=== PATIENT | male | born 1960 | race Caucasian/White ===

== ENCOUNTER 2018-06-24 19:55 | Emergency (ER) | payer BC ==
[2018-06-24] MEDS: ASPIRIN 325 MG TABLET PO ONE (20:00)
[2018-06-24] MEDS: CLOPIDOGREL BISULFATE 75 MG TABLET PO ONE ×2 (20:02)
[2018-06-24] MEDS: NITROGLYCERIN 0.4 MG TAB.SUBL SL ONE ×2 (20:05→21:42)
[2018-06-24] MEDS: HEPARIN SODIUM 5000 UNIT/1 ML IV ONE (20:16)
[2018-06-24] MEDS ORDERED: HEPARIN SODIUM,PORCINE/D5W 20,000 UNIT/500 ML BAG IV ONE (20:16)
[2018-06-24] MEDS: HEPARIN SODIUM,PORCINE/D5W 20,000 UNIT/500 ML BAG IV ONE (20:18)
[2018-06-24] MEDS: 0.9 % SODIUM CHLORIDE 1,000 ML IV ONE (20:20)
[2018-06-24 20:27] LABS: BASOPHILS % 0.5 (0.0-1.5); EOSINOPHILS % 5.2 % (0.0-6.8); MEAN CORPUSCULAR HEMOGLOBIN 30.1 pg (28.0-34.0); MEAN CORPUSCULAR VOLUME 86.5 fl (80.0-100.0); MONOCYTES % 4.7 % (0.0-11.0); NEUTROPHILS # 5.3 # k/uL (1.4-7.7)
[2018-06-24 20:30] LABS: eGFR (Non-African) > 60
--- NOTE | 2018-06-24 20:31 | ED Physician Documentation ---
Chest Pain - HISTORIAN Historian: patient - HPI Stated Complaint: chest pain Chief Complaint: Chest Pain Additional Information: Sitting in bed and began to feel hot, sweat profusely, and had precordial pain radiating into his left shoulder. Pain improved after 20 minutes with only a bit of pain in left shoulder. No HX heart problems, except takes 3 meds for HTN. His mother had heart problems beginning at age 60. Quit smoking cigarettes 10 days ago and using vapor. Social drinker, uses marijuana. No other modifying factors or associated signs. Last known Well Date: 06/24/18 Last Known Well Time: 19:45 - ROS CONST: none - PAST HX ME risk factors: hypertension DVT/PE Risk Factors: none TAD/AAA risk factors: none Neuro deficit: none Surgeries/Procedures: none - SOCIAL HX Smoking History: quit less than 1 year, cigarettes Alcohol Use: occasionally Drug Use: marijuana - FAMILY HX Family HX: other (above) - REVIEWED ASSESSMENTS Nursing Assessment Reviewed: Yes Vitals Reviewed: Yes Progress - Progress Progress: EKG: stemi. sinus bradycardia. ST elevations avl, avf, II; depressions avr, V1, V4 2011, accepted for admit to [facility] per Dr. Saunders. ED Results Lab/Radiology - Orders Orders: ED Orders Category Date Time Status Place IV Lock 1T Care 06/24/18 20:10 Active CBC/PLATELET/DIFF Routine Lab 06/24/18 20:18 Received CMP Routine Lab 06/24/18 20:18 Received TROPONIN I (cTnI) Stat Lab 06/24/18 20:18 Received URINALYSIS Routine Lab 06/24/18 Ordered 0.9 % Sodium Chloride [Normal Saline] 1,000 ml Med 06/24/18 20:21 Discontinued IV .STK-MED Aspirin Med 06/24/18 19:59 Discontinued 324 mg .ROUTE .STK-MED ONE Aspirin Med 06/24/18 20:10 Discontinued 325 mg PO NOW ONE Clopidogrel Bisulfate [Plavix] Med 06/24/18 19:59 Discontinued 300 mg .ROUTE .STK-MED ONE Clopidogrel Bisulfate [Plavix] Med 06/24/18 20:14 Discontinued 300 mg .ROUTE .STK-MED ONE Clopidogrel Bisulfate [Plavix] Med 06/24/18 20:10 Discontinued 300 mg PO NOW ONE Clopidogrel Bisulfate [Plavix] Med 06/24/18 20:16 Discontinued 300 mg PO NOW ONE Heparin Sodium [Heparin] Med 06/24/18 20:16 Discontinued 4,000 unit IV NOW ONE Heparin Sodium [Heparin] Med 06/24/18 20:12 Discontinued 5,000 unit .ROUTE .STK-MED ONE Heparin Sodium,Porcine/D5w [Heparin] Med 06/24/18 20:12 Discontinued 20,000 unit in 500 ml IV .STK-MED Heparin Sodium,Porcine/D5w [Heparin] Med 06/24/18 20:16 Active 20,000 unit in 500 ml IV 1T Nitroglycerin [Nitroquick] Med 06/24/18 20:05 Discontinued 0.4 mg SL NOW ONE Nitroglycerin [Nitroquick] Med 06/24/18 20:01 Discontinued 1.2 mg SL .STK-MED ONE Oxygen Daily Oxygen 06/24/18 20:15 Ordered Chest Pain Physical Exam - EXAM General Appearance: alert, mild distress EENT: eye inspection normal, ENT inspection normal, pharynx normal (Mallampati 2), no signs of dehydration, no nystagmus Neck: nml inspection Respiratory: no resp. distress, nml breath sounds CVS: reg. rate & rhythm, no murmur, pulses full (PT's 2+) Abdomen: normal bowel sounds, no distension Skin: warm/dry, normal color, other (hemangioma colored sally right of sternum) Extremities: non-tender, no evidence of injury Neuro: CN's nml as tested, motor nml, sensation nml, cognition normal Discharge Clincal Impression: STEMI (ST elevation myocardial infarction) Qualifiers: Involved coronary artery: unspecified coronary artery Qualified Code(s): I21.3 - ST elevation (STEMI) myocardial infarction of unspecified site Referrals: Nathan Damon DO [Primary Care Provider] - 2 Days Condition: Fair Disposition: 02 XFER [facility] HOSP Decision to Admit: NO Decision Time: 20:12
[2018-06-24] MEDS: ASPIRIN 81 MG CHEW TAB ONE (21:41)
[2018-06-24] MEDS: HEPARIN SODIUM 5000 UNIT/1 ML ONE (21:41)
[2018-06-24] MEDS: CLOPIDOGREL BISULFATE 75 MG TABLET ONE ×2 (21:42→21:43)
[2018-06-24 21:46] VITALS: BP 113/69
== END 2018-06-24 20:20 | disposition short-term general hospital (02) ==
LOC: ED 19:59
DX: I21.3 ST elevation (STEMI) myocardial infarction of unspecified site (principal)
CPT/HCPCS: 80053; 84484; 85025; 93005; A9270; J1644; J7030; S1016